=== PATIENT | female | born 1950 | race Caucasian/White ===

== ENCOUNTER → 2017-09-20 | Day surgery (SDC) | payer OTHER ==
[~2017-09-20] VITALS: Ht 167.6 cm; Wt 92.0 kg
[~2017-09-20] MED LIST: ACET-1138 PO; APOA20CA; ASPCH81X PO; ASPEC81 PO; CHOL1000 PO; CITA40TA4 PO; CLB200 PO; FLUT0.15 NAE; GLIP-199 PO; LISI-729 PO; LPT40 OR; MISCCAP80; MISCTAB30; MULT-190 PO; MULT-506 PO; OXYSR10 PO; PIOG1TAB23 PO; RXC5 PO; SITA100T3 PO
[2017-09-20 07:17] VITALS: BP 134/57; PULSE 71; TEMP 36.6; O2SAT 96; Ht 167.6 cm; Wt 92.0 kg
== END | disposition home or self-care (01) ==
LOC: C.CATH 06:32
PROVIDERS: ATTEND Internal Medicine Cardiovascular Disease
DX: R94.39 Abnormal result of other cardiovascular function study (principal)

== ENCOUNTER 2018-06-29 04:49 | Inpatient (IN) ==
--- NOTE | 2018-05-24 10:39 | PAT Medication Instructions ---
Medication Instructions Date of Service May 24, 2018 Home Medications Prevagen 1 tab PO DAILY atorvastatin 20 mg PO QAM citalopram 40 mg PO QAM glipizide 10 mg PO BID glucosamine-chondroitin [Osteo Bi-Flex] 1 tab PO DAILY lisinopril 5 mg PO QAM meloxicam 15 mg PO QAM nodufkhm-qtw-dole-FA-lutein [Centrum Silver Women] 1 tab PO DAILY pioglitazone 30 mg PO QAM sitagliptin [Januvia] 100 mg PO QAM ASK your surgeon for instructions meloxicam 15 mg PO QAM STOP taking 2 weeks before surgery glucosamine-chondroitin [Osteo Bi-Flex] 1 tab PO DAILY Prevagen 1 tab PO DAILY DO NOT take the morning of surgery glipizide 10 mg PO BID lisinopril 5 mg PO QAM jgnlbwsz-dsn-zfph-FA-lutein [Centrum Silver Women] 1 tab PO DAILY pioglitazone 30 mg PO QAM sitagliptin [Januvia] 100 mg PO QAM Take morning of surgery With a small sip of water, OTHERWISE NOTHING TO EAT OR DRINK AFTER MIDNIGHT: atorvastatin 20 mg PO QAM citalopram 40 mg PO QAM Take evening before surgery glipizide 10 mg PO BID Other Notes If you have any questions please call us at [phone] or [phone] or [phone] or [phone]
--- NOTE | 2018-05-24 13:47 | Anesthesiology Consultation ---
Date of Service May 24, 2018 Assessment & Plan (1) Encounter for pre-operative examination: Chart Review Chart Review: Acceptable Risk for Surgery and Patient seen in Pre Admission Testing Consults Requested none Teaching & Discussion Pre-Anesthesia Teaching/Discussion Notes: Instructed NPO after midnight before surgery, except medications with 15 cc of water. Medication instructions provided according to the PAT guidelines. History Surgery Operation Date: 06/29/18 14:00 Proposed Procedures p Right Total Knee Arthroplasty - Sid Holt MD Height/Weight Height: 5 ft 6 in Weight: 94.8 kg Allergies Allergy/AdvReac Type Severity Reaction Status Date / Time Cipro Allergy Unknown ITCHY,RASH Verified 02/26/16 05:53 ciprofloxacin Allergy Unknown ITCHY,RASH Verified 05/18/18 13:32 codeine Allergy Unknown HIVES Verified 05/18/18 13:32 nickel Allergy Unknown BLISTERS Verified 05/18/18 13:55 Penicillins Allergy Unknown STOMACH Verified 05/18/18 13:32 PAIN metformin AdvReac Unknown DIARRHEA Verified 05/18/18 13:32 Medications Home Medications Medication Instructions Recorded Confirmed Last Taken Prevagen 1 tab PO DAILY 05/18/18 05/18/18 Unknown atorvastatin 20 mg PO QAM 05/18/18 05/18/18 Unknown citalopram 40 mg PO QAM 05/18/18 05/18/18 Unknown glipizide 10 mg PO BID 05/18/18 05/18/18 Unknown glucosamine-chondroitin [Osteo 1 tab PO DAILY 05/18/18 05/18/18 Unknown Bi-Flex] lisinopril 5 mg PO QAM 05/18/18 05/18/18 Unknown meloxicam 15 mg PO QAM 05/18/18 05/18/18 Unknown leffiaxb-xpl-rzqq-FA-lutein 1 tab PO DAILY 05/18/18 05/18/18 Unknown [Centrum Silver Women] pioglitazone 30 mg PO QAM 05/18/18 05/18/18 Unknown sitagliptin [Januvia] 100 mg PO QAM 05/18/18 05/18/18 Unknown Past Medical History Medical History Diabetes Heel spur History of ankle fracture JAN 2018...RESOLVED Hypertension Nausea and vomiting after administration of anesthetic agent Osteoarthritis Spinal stenosis of cervical region Past Surgical History Surgical History History of arthroplasty of left knee History of cardiac catheterization /PAIN DOWN ARM, UNDER BREAST, JAW PAIN/NO FINDINGS ([facility]) History of colonoscopy History of laparoscopic cholecystectomy History of tonsillectomy Past Anesthesia History No Hx of Anesthesia Complications and No Family Hx of Anesthesia Complications History of PONV Yes Motion Sickness Screening History of Motion Sickness: No Social History Smoking Status: Former smoker tobacco type: cigarettes Smoking cigarettes per day: QUIT 1975 Do You Dip or Chew Tobacco: No Hx Alcohol Use: Yes Alcohol type: wine alcohol intake frequency: other Alcohol Intake Frequency Comment: ONCE A WEEK Hx Substance Use: No substance use type: does not use Exercise / Class Metabolic Activity II 4-5 Yardwork/Stairs/Walk up hill (Walks dogs a few times a week. Able to climb a FOS. Denies CP or SOB. ) Review of Systems Patient denies chest pain, shortness of breath, dyspnea on exertion, reflux, cough, wheezing, palpitations. +joint pain Physical Exam Vital Signs BP: 128/74 P: 75 R: 18 T: 97.8 SPO2: 96% on RA ENMT Thyromental Distance: > or= 3.5 Finger Breadths (4) Mallampati Class: I Neck normal visual inspection, trachea midline and + limited neck extension (due to spinal stenosis) Respiratory normal respiratory effort Auscultation: lungs clear to auscultation bilaterally Cardiovascular Rate/Rhythm: regular rate and regular rhythm Heart Sounds: no murmur Vessels: no carotid bruit Psychiatric Orientation: alert and oriented x 3 Testing Electrocardiogram Date: 05/24/18 Findings: + NSR @ (75) Non specific ST abnormality. No change compared to EKG of 09/08/17. Chest X-Ray Date: 05/24/18 Findings: + NAD Stress Test Date: 09/16/17 Type: exercise Resting EF: 55-59% Resting RWMA: + none Valvular Disease: no significant valvular disease The stress ECHO is borderline positive for inducible ischemia. Left ventricular wall motion is normal at rest. Left ventricular EF increases less than what is expected post exercise. No focal wall motion abnormalities are noted on the post exercise images, however not all myocardial segments were adequately visualized. A borderline hypertensive response to exercise was observed with peak blood pressure of 214/73. Exercise capacity is below average. The low workload achieved reduces the sensitivity of this test for the detection of CAD or ischemia. LV wall thickness is mildly increased (concentric). There is no significant valvular disease. Cardiac Catheterization Date: 09/23/17 Findings: + normal Left heart cath done due to positive stress test. Normal coronary arteries found. Recommendations: Medical therapy and/or Counseling. Laboratory Results 05/24/18 13:24 05/24/18 13:24 Blood Type O Positive 05/24/18 13:24 Antibody Screen NEGATIVE 05/24/18 13:24 PT 10.8 Seconds (9.0-12.0) 05/24/18 13:24 INR 1.0 (0.9-1.1) 05/24/18 13:24 APTT 27.9 Seconds (21.0-31.0) 05/24/18 13:24 Hemoglobin A1c 6.3 % (4.5-5.6) H 05/24/18 13:24 Urine Color Yellow 05/24/18 13:24 Urine Appearance Cloudy (Clear) H 05/24/18 13:24 Urine pH 6.0 (4.5-7.5) 05/24/18 13:24 Ur Specific [place] 1.022 (1.000-1.030) 05/24/18 13:24 Urine Protein Negative (Negative) 05/24/18 13:24 Urine Glucose (UA) Negative (Negative) 05/24/18 13:24 Urine Ketones Negative (Negative) 05/24/18 13:24 Urine Nitrite Negative (Negative) 05/24/18 13:24 Ur Leukocyte Esterase 2+ (Negative) H 05/24/18 13:24 Urine WBC (Auto) 10-30 /hpf (0-5) H 05/24/18 13:24 Urine RBC (Auto) 0-4 /hpf (0-4) 05/24/18 13:24 U Hyaline Cast (Auto) 1-5 /lpf (0-5) 05/24/18 13:24 U Epithel Cells (Auto) >30 /lpf (0-5) H 05/24/18 13:24 Urine Bacteria (Auto) 2+ (Negative) H 05/24/18 13:24 05/24/18 13:24 Urine Culture - Final Urine,Clean Catch Three types or organisms present, all moderate counts probable skin sj. No further identifications or sensitivities to follow.
--- NOTE | 2018-05-24 14:21 | XRay Report ---
XR chest Pre-admission PA/Lat CLINICAL HISTORY: pat preoperative attenuation COMPARISON STUDY: 09/23/2017 FINDINGS: The bones soft tissues and hemidiaphragms are normal. The cardiomediastinal silhouette is n ormal. The lungs are clear. The pulmonary vasculature is normal. IMPRESSION: Negative chest. The above report was generated using voice recognition software. It may contain grammatical, syntax or spelling errors. Electronically signed by: Venkat Rouse M.D. 05/24/2018 2:20 PM
[2018-05-24 15:40] LABS: Basophils # (auto) 0.02 K/uL (0-0.2); Basophils % (auto) 0.5 %; Eosinophils # (auto) 0.15 K/uL (0-0.5); Eosinophils % (auto) 3.7 %; Hematocrit (blood only) 37.3 % (37-47); Hemoglobin 12.8 g/dL (12.0-16.0); Immature Granulocytes # (auto) 0.03 K/uL (0.00-0.02); Immature Granulocytes % (auto) 0.7 %; Lymphocytes # (auto) 0.83 K/uL (1.2-3.4); Lymphocytes % (auto) 20.3 %; Mean Corpuscular Hgb Conc 34.3 g/dL (32-36); Mean Corpuscular Volume 90.8 fL (80-100); Monocytes # (auto) 0.57 K/uL (0.11-0.59); Neutrophils # (auto) 2.48 K/uL (1.4-6.5); Neutrophils % (auto) 60.8 %; Platelet Count 149 K/uL (130-400); RDW Coefficient of Variation 14.1 % (11.5-14.5); RDW Standard Deviation 47.2 fL (36.4-46.3); Red Blood Count 4.11 M/uL (4.2-5.4); White Blood Count 4.08 K/uL (4.8-10.8)
[2018-05-24 15:52] LABS: Appearance Urine Cloudy (Clear); Bacteria Urine Automated 2+ (Negative); Bilirubin Urine Negative (Negative); Color Urine Yellow; Epithelial Cell Urine Auto >30 /lpf (0-5); Glucose Urine UA Negative (Negative); Ketones Urine Negative (Negative); Leukocyte Esterase Urine 2+ (Negative); Nitrite Urine Negative (Negative); Protein Urine Negative (Negative); Specific Gravity Urine 1.022 (1.000-1.030); Urobilinogen Urine Negative (Negative)
[2018-05-24 15:54] LABS: Albumin Level 3.9 gm/dl (3.4-5.0); Calcium 8.7 mg/dl (8.5-10.1); Creatinine Clr Calc Pharmacy 82.1 ml/min; Est GFR (African American) 94.3; Est GFR (Non-African American) 81.3; Partial Thromboplastin Ratio 1.1; Partial Thromboplastin Time 27.9 Seconds (21.0-31.0); Potassium 3.8 mmol/L (3.5-5.1); Prothrombin Time 10.8 Seconds (9.0-12.0)
[2018-05-25 05:57] LABS: Estimated Average Glucose 134 mg/dl
--- NOTE | 2018-06-28 22:53 | History and Physical Report ---
DATE OF ADMISSION: 06/29/2018 CHIEF COMPLAINT: Chronic right knee pain. HISTORY OF PRESENT ILLNESS: This is a 67-year-old female patient of Dr. Holt'trudy complaining of chronic right knee pain and instability, longstanding, now progressively getting worse. The patient has been diagnosed with end-stage osteoarthritis per clinical and radiographic exams. She has failed conservative treatment including intra-articular injections, the use of Osteo Bi-Flex, anti-inflammatories, and cane. The patient has increased pain with weightbearing activities and her pain does interfere with her activities of daily living. PAST MEDICAL HISTORY: Hypercholesterolemia, sleep apnea, diabetes mellitus, osteoarthritis, spine problems, neck problems, upper back problems, obesity. SOCIAL HISTORY: She was a lifelong smoker, quit in 1975. She is an occasional drinker. PAST SURGICAL HISTORY: Tonsillectomy, cholecystectomy, left knee surgery, colonoscopy, and heart catheterization. FAMILY HISTORY: Noncontributory. REVIEW OF SYSTEMS: Chronic right knee pain and instability. Otherwise, denies any shortness of breath, chest pain, nausea, vomiting, or any other joint complaints. MEDICATIONS: 1. Lisinopril 5 mg daily. 2. Actos 30 mg daily. 3. Januvia 100 mg daily. 4. Citalopram 40 mg daily. 5. Glipizide 10 mg twice daily 6. Atorvastatin 20 mg daily. 7. Ocuvite Extra multiple vitamin and mineral daily. 8. Calciferol 1000 units of vitamin daily. 9. Osteo Bi-Flex daily. 10. Prevagen 20 mg daily. 11. Probiotic daily. 12. Fluticasone 50 mcg/actuation nasal spray 2 sprays each nostril daily. ALLERGIES: CODEINE WHICH CAUSES HIVES AND PENICILLIN WHICH CAUSES GI UPSET. PHYSICAL EXAMINATION: GENERAL: Well-developed, well-nourished 67-year-old female in no acute distress. She is alert, oriented x3 and pleasant. HEENT: Normocephalic, atraumatic. Extraocular motions are intact. Pupils are equal, reactive to light. HEART: Regular rate and rhythm, no murmurs appreciated. LUNGS: Clear. ABDOMEN: Soft and nontender. Bowel sounds present. EXTREMITIES: Right knee reveals 0-125 degrees limited range of motion with medial joint line tenderness. She has a varus deformity. She has crepitation with passive range of motion. She has about 4/5 strength with pain. NEUROLOGIC: Neurovascularly, she is intact in the right lower extremity. DIAGNOSES: Right knee end-stage osteoarthritis, hypercholesterolemia, sleep apnea, diabetes mellitus, spine problems, sciatica, obesity. PLAN: The patient was advised of her diagnosis. Indications, risks, benefits, postop course have all been reviewed. The patient wished to proceed with a right total knee arthroplasty. Necessary consent forms, preoperative testing, and clearances will be obtained.
[2018-06-29] MEDS: LR 500ML BOLUS, THEN 15ML/HR IV SCH ×2 (05:40→10:48)
[2018-06-29] MEDS ORDERED: VANCOMYCIN HCL 1,500 MG in SODIUM CHLORIDE 0.9% 500 ML IV SCH ×2 (06:00→18:00)
[2018-06-29] MEDS ORDERED: METOCLOPRAMIDE HCL 10 MG TABLET PO SCH (06:00)
[2018-06-29] MEDS ORDERED: ACETAMINOPHEN 500 MG TAB PO SCH (06:00)
[2018-06-29] MEDS ORDERED: GABAPENTIN 300 MG PO SCH (06:00)
[2018-06-29] MEDS ORDERED: ROPIVACAINE 0.5% HCL/PF 150 MG, BUPIVACAINE 0.5% MPF 30 ML, EPINEPHrine 30MG/30ML (OR U... INFIL SCH (06:00)
[2018-06-29] MEDS ORDERED: TRANEXAMIC ACID 1,000 MG **IV Pre-op IV SCH (06:00)
[2018-06-29] MEDS ORDERED: CeleBREX 200 MG CAP PO SCH (06:00)
[2018-06-29] MEDS ORDERED: FAMOTIDINE 20 MG TAB PO SCH (06:00)
[2018-06-29] MEDS ORDERED: BUPIVACAINE 0.5 % 5 MG/1 ML PF 10ML VIAL ONE (06:27)
[2018-06-29] MEDS ORDERED: DEXAMETHASONE SOD INJ 4 MG/ML VIAL ONE (06:29)
[2018-06-29] MEDS ORDERED: EPINEPHrine INJ 1 MG/ML AMP ONE (06:29)
[2018-06-29] MEDS ORDERED: ROPIVACAINE 0.5% 5 MG/ML 30 ML VIAL ONE (06:29)
[2018-06-29] MEDS ORDERED: TRANEXAMIC ACID 1,000 MG **IV Intra-op IV SCH (06:30)
[2018-06-29] MEDS ORDERED: POVIDONE-IODINE OP SOLN 30 ML BTL ONE (06:38)
[2018-06-29] MEDS ORDERED: fentaNYL citrate 100 MCG/2 ML VIAL ONE ×2 (06:38)
[2018-06-29] MEDS ORDERED: BACITRACIN INJ 50,000 UNIT VIAL ONE (06:38)
[2018-06-29] MEDS ORDERED: ORTHO JOINT ANESTHETIC ONE (06:38)
[2018-06-29] MEDS ORDERED: MIDAZOLAM HCL 1 MG/ML 2ML VIAL ONE (06:38)
[2018-06-29] MEDS ORDERED: fentaNYL citrate 100 MCG/2 ML VIAL IV PRN (07:01)
[2018-06-29] MEDS ORDERED: ONDANSETRON INJ 2 MG/ML 2 ML VIAL IV PRN ×2 (07:01→10:15)
[2018-06-29] MEDS ORDERED: ePHEDrine sulfate 50 MG/ML AMP IV PRN (07:01)
[2018-06-29] MEDS ORDERED: ATROPINE SULFATE 0.1 MG/ML 10ML SYR IV PRN (07:01)
--- NOTE | 2018-06-29 07:10 | History & Physical Bridge Note ---
Date of Service June 29, 2018 History & Physical Bridge Note I have examined the patient, reviewed the History & Physical and in the interval since the performance of the History & Physical I have noted the following changes of clinical significance: no changes noted
[2018-06-29] MEDS ORDERED: ONDANSETRON INJ 2 MG/ML 2 ML VIAL ONE (08:10)
[2018-06-29] MEDS ORDERED: PROPOFOL IV EMULSION 10 MG/ML 20 ML VIAL IV ONE ×2 (08:10)
[2018-06-29] MEDS ORDERED: LIDOCAINE HCL 2% 2 ML VIAL/AMP(20MG/ML) INFIL ONE (08:10)
[2018-06-29] MEDS ORDERED: PHENYLEPHRINE 100MCG/ML 5ML SYR ONE (08:42)
--- NOTE | 2018-06-29 08:50 | Post Operative Brief Note ---
Immediate Post Op Note v1 Date of Surgery June 29, 2018 Pre & Post Diagnosis Operation Date: 06/29/18 07:00 Pre-Op Diagnosis: Right Knee Degenerative Joint Disease Post-Op Diagnosis: Right Knee Degenerative Joint Disease Procedure Operation Date: 06/29/18 07:00 Actual Procedures p Right Total Knee Arthroplasty(Right) - Sid Holt MD Surgeon Sid Holt MD Defense Attorney Jarrod CONNELL Estimated Blood Loss 5 Findings Consistent with Post-Op Diagnosis Specimens Bone cuts Drains Hemovac Drain Anesthesia Type Spinal MAC Complications none Disposition Accompanied Patient To Recovery: No Disposition: Recovery Room Overlapping Procedure I was present for: the critical portions of procedure.
--- NOTE | 2018-06-29 09:00 | Operative Report ---
Post Operative Report Pre & Post Diagnosis Operation Date: 06/29/18 07:00 Pre-Op Diagnosis: Right Knee Degenerative Joint Disease Post-Op Diagnosis: Right Knee Degenerative Joint Disease Procedure Operation Date: 06/29/18 07:00 Actual Procedures p Right Total Knee Arthroplasty(Right) - Sid Holt MD Surgeon Sid Holt MD Md Senior Research Scientist Jarrod CONNELL Estimated Blood Loss 5 Findings Consistent with Post-Op Diagnosis Specimens Bone cuts Anesthesia Type Spinal MAC Complications none Disposition Accompanied Patient To Recovery: No Disposition: Recovery Room Indications 67-year-old female with bilateral knee degenerative arthritis history of left knee replacement. She has moderate to severe osteoarthritis in her right knee not quite tjsh-hq-ezzl but she had such good relief with her opposite knee and she has chronic pain swelling in her right knee that she want to proceed with knee replacement surgery. Description of Procedure The patient was taken to the operating room and anesthetized under spinal MAC regional block. Patient was placed supine on the the operating table. A pneumatic tourniquet was placed about the right upper thigh. The knee exam demonstrated good range of motion varus knee some LCL laxity with tight MCL. The involved leg was elevated exsanguinated with Esmarch bandage and the pneumatic tourniquet was raised to 325 millimeters mercury. A longitudinal incision was made across the anterior knee. Skin flaps were elevated. An incision was made into the medial retinaculum and extended up into the mid third of the quadriceps tendon and extended down to the tibial tubercle. Intra- articular findings demonstrated grade 3 close to grade 4 wear with significant thinning in the medial compartment both femoral condyle and tibia as well as patellofemoral joint. The knee was exposed by excising cruciate ligaments and menisci. The infrapatellar fat pad was resected. The fat pad over the anterior femur at the upper aspect of the articular surface was resected for placement of the component in that area. A subperiosteal peel lateral release was performed around the patella. Piecrust of MCL was required to balance flexion extension gaps. The [employer] journey 2.0 posterior stabilized total knee arthroplasty system was utilized for the procedure. The custom femoral cutting guide was pinned in position. The distal femoral cut was made. The size 4, 5 in 1 cutting block was placed. The anterior posterior and chamfer cuts were made. The knee was extended and a free hand cut technique was performed to the patella. The patella with was measured and the width was reproduced using a 32 patella component. 3 drill holes are made for the patella component pegs. The tibia was then subluxed. The custom tibial cutting block was pinned in position and the proximal tibial cut was made with the oscillating saw. The size 3 tibial trial was externally rotated in line with the tibial tubercle and pinned in position. The punch for the stem was used. The femoral trial was inserted and centered the notch cutting devices were used and the collet was placed. Tibial trials were used for the insert. The size 12 trial gave balanced ligaments through full range of motion. Patella tracking was assessed with range of motion. The patella tracked centrally. The trials were removed. The Orthomix anesthetic cocktail was injected per protocol. The cut bone surfaces and soft tissue were copiously irrigated with antibiotic solution with bacitracin. The final components were cemented with Simplex cement. The final components were 4 posterior stabilized right Tava[employer] journey 2.0 femur, 3 tibial baseplate, 12 posterior stabilized polyethylene insert, 32 symmetrical patella. While the cement cured the Betadine soak was used per protocol. When the cement cured the knee was copiously irrigated with pulsatile lavage antibiotic solution with bacitracin. 2 drains were brought out laterally connected to Hemovac. The quadriceps tendon and medial retinaculum were closed with interrupted [id number] #1 Vicryl sutures. The knee was taken through full range of motion and repair was secure. The subcutaneous tissues were closed with 2-0 Vicryl sutures. The skin was closed with collin. A sterile Silverlon dressing was applied. The tourniquet was let down and the patient had good capillary refill to the extremity. The patient tolerated the procedure well. My physician physician assistant Jarrod CONNELL assisted in the procedure including prepping draping leg positioning soft tissue retraction instrument management and assisted in the closure ,dressings application and will participate in postoperative care the patient. I attest to the content of the Intraoperative Record and any orders documented therein. Any exceptions are noted below.
--- NOTE | 2018-06-29 09:34 | XRay Report ---
RIGHT KNEE 2 VIEWS History: Right total knee arthroplasty. Degenerative arthritis. Postop. FINDINGS: The patient is status post a right total knee arthroplasty. The hardware is intact. No frac ture or dislocation. Skin collin and surgical drains are in place. IMPRESSION: Right total knee arthroplasty. No evidence for hardware complication. Electronically signed by: Geovanny Dugan M.D. 06/29/2018 9:33 AM
--- NOTE | 2018-06-29 09:54 | Anesthesiology Progress Note ---
Date of Service June 29, 2018 Anesthesia Post Procedure Vital Signs Vital Signs: Temp Pulse Pulse Resp BP Pulse Ox 06/29/18 09:40 36.5 C 76 18 111/49 L 95 06/29/18 09:30 78 18 111/50 L 94 06/29/18 09:20 79 16 102/47 L 96 06/29/18 09:10 36.4 C L 83 17 108/55 L 96 06/29/18 05:53 36.7 C 71 20 147/72 H 97 Pain Intensity Right Knee: Pain Intensity: 0 Notes Mental Status: alert / awake / arousable Patient Amnestic to Procedure: Yes Nausea / Vomiting: adequately controlled Pain: adequately controlled Airway Patency, RR, SpO2: stable & adequate BP & HR: stable & adequate Hydration State: stable & adequate Neuraxial Anesthesia: was administered and sensory block is resolving Anesthetic Complications: no major complications apparent
[2018-06-29] MEDS ORDERED: MoRPHine SULFATE 2 MG/ML CARP IV PRN (10:15)
[2018-06-29] MEDS ORDERED: ALUMINUM/MAGNESIUM SUSP 30 ML UDC PO PRN (10:15)
[2018-06-29] MEDS ORDERED: VANCOMYCIN CONSULT ACTIVE PRN (10:15)
[2018-06-29] MEDS ORDERED: MAGNESIUM HYDROXIDE SUSP 30 ML UDC PO PRN (10:15)
[2018-06-29] MEDS ORDERED: PHARMACY GLYCEMIC MGMT CONSULT PRN (10:19)
[2018-06-29] MEDS ORDERED: INSULIN GLARGINE SOLOSTAR 100 UNITS/ML 3 ML PEN SC STA (10:43)
[2018-06-29] MEDS: SODIUM CHLORIDE 0.9% 1000ML 1,000 ML IV SCH (12:42)
--- NOTE | 2018-06-29 12:48 | Pharmacy Report ---
Glycemic Control Consultation - Date of Service June 29, 2018 - Scope Scope: Glycemic Pharmacist consulted by Jarrod Palacio on 06/29/18 for glycemic control and to write orders per [facility] inpatient glycemic control protocol - Objective Weight: 93.582 kg Accuchecks BSG (last 24hrs): 06/29/18 06/29/18 06/29/18 05:14 09:14 10:33 POC Glucose 163 H 166 H 196 H 06/29/18 12:06 POC Glucose 312 H HbA1c: Hemoglobin A1c 6.3 % (4.5-5.6) H 05/24/18 13:24 - Recent Pertinent Medications Outpatient Anti-diabetic Regimen: * Actos, Januvia, Glipizide * A1c = 6.3 % 05/24/18 - Assessment & Plan Assessment & Plan: ASSESSMENT: * Ms. Ribera is a 67 yo F unbeknownst to the pharmacy glycemic service. PMHx: DM- II, Hypercholesterolemia, OA, obesity. Her outpt glycemic management is adequate based on her A1C of 6.3%, obtained 05/24/18. She is POD 0 for a R TKA. She did receive DXM 4mg IV x1 perioperatively. * She is maintained only on orals as an outpt, will utilize basal/bolus while here PLAN FOR INPATIENT GLYCEMIC CONTROL: * Holding outpatient oral diabetes medications * Basal insulin * Lantus 20 units given this afternoon, immediately upon arrival to the floor. Then lantus scale SQ BID set to start tonight * BSGs <140mg/dL give 10 units * BSGs 140-180mg/dL give 15 units * BSGs >180mg/dL give 20 units * Bolus insulin * NovoLog per scale ACHS or Q6hrs while NPO * Goal Range: Low 110 mg/dL - High 140 mg/dL * Correction Factor: 15 mg/dL/unit * Nutritional / Prandial insulin per carb ratio of 1 unit per 6 grams CHO consumed * adding 00,04 checks to help ensure euglycemia in the post-operative setting * Please note that the plan above was derived based on current level of insulin resistance and hospital stress. These recommendations are appropriate for inpatient admission only. Plan of care upon discharge will need to be reassessed to avoid potential outpatient hypo/hyperglycemia. Thank you.
[2018-06-29] MEDS: INSULIN ASPART 100 UNITS/ML 3 ML PEN SC SCH ×3 (13:15→21:30)
--- NOTE | 2018-06-29 13:15 | Internal Medicine Consult Note ---
Date of Consultation June 29, 2018 Assessment & Plan (1) Osteoarthritis: S/P right TKA. Doing well postoperatively. (2) HTN (hypertension): Hemodynamically stable postop. Continue lisinopril with hold parameters. (3) Diabetes mellitus, type II: Well controlled on oral agents. Hgb A1C 6.3. Pharmacy consulted for glycemic management during hospital stay. (4) Dyslipidemia: Continue atorvastatin. (5) Depression: Continue citalopram. (6) Glaucoma: Continue bimatoprost drops. (7) DVT prophylaxis: Per Ortho protocol. (8) Encounter for consultation: Thank you for this consultation. We will follow the patient with you during their hospital stay. My cell # is [phone]. Dr. Dukes will be assuming medical management 06/30. You can reach a member of the [facility] Medicine Team 11/01 via pager @ [phone]. History of Present Illness Reason for Consultation: medical management Requesting Physician: Dr. Holt Attending Physician: Sid Holt MD History of Present Illness 67 YO female followed by Deon Sharma PA-C in [place]. History of hypertension, DM type 2, and other problems noted below. Right TKA performed today by Dr. Holt under spinal / MAC anesthesia. Doing well postoperatively. No chest pain, cough, SOB, nausea, vomiting. Pain well-controlled. Allergies Allergy/AdvReac Type Severity Reaction Status Date / Time Cipro Allergy Unknown ITCHY,RASH Verified 02/26/16 05:53 ciprofloxacin Allergy Unknown ITCHY,RASH Verified 06/29/18 05:21 codeine Allergy Unknown HIVES Verified 06/29/18 05:21 nickel Allergy Unknown BLISTERS Verified 06/29/18 05:21 metformin AdvReac Unknown DIARRHEA Verified 06/29/18 05:21 Penicillins AdvReac Unknown STOMACH Verified 06/29/18 10:21 PAIN Home Medications Home Medications Medication Instructions Recorded Confirmed Type Prevagen 1 tab PO DAILY 05/18/18 06/29/18 History atorvastatin 20 mg PO QAM 05/18/18 06/29/18 History citalopram 40 mg PO QAM 05/18/18 06/29/18 History glipizide 10 mg PO BID 05/18/18 06/29/18 History glucosamine-chondroitin [Osteo 1 tab PO DAILY 05/18/18 06/29/18 History Bi-Flex] lisinopril 5 mg PO QAM 05/18/18 06/29/18 History meloxicam 15 mg PO QAM 05/18/18 06/29/18 History dahelxek-xbv-vutq-FA-lutein 1 tab PO DAILY 05/18/18 06/29/18 History [Centrum Silver Women] pioglitazone 30 mg PO QAM 05/18/18 06/29/18 History sitagliptin [Januvia] 100 mg PO QAM 05/18/18 06/29/18 History bimatoprost 1 drp OPB PM 06/29/18 06/29/18 History Patient History Medical History Hypertension (Chronic) Glaucoma (Chronic) Dyslipidemia (Chronic) Depression (Chronic) Diabetes mellitus, type II (Chronic) Osteoarthritis (Chronic) Heel spur (Chronic) History of ankle fracture (Chronic) JAN 2018...RESOLVED Osteoarthritis (Chronic) Spinal stenosis of cervical region (Chronic) Surgical History History of arthroplasty of left knee (Chronic) History of cardiac catheterization (Chronic) /PAIN DOWN ARM, UNDER BREAST, JAW PAIN/NO FINDINGS ([employer]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) History of colonoscopy (Chronic) History of laparoscopic cholecystectomy (Chronic) History of tonsillectomy (Chronic) Nausea and vomiting after administration of anesthetic agent (Resolved) Family History Aunt Colon cancer Uncle Colon cancer Grandfather (Maternal) Colon cancer Social History marital status: Current Living Situation: Spouse Other Information That Helps Us Care for You: No Feels Safe at Home: Yes Smoking Status: Former smoker Tobacco Type: cigarettes Cigarettes per Day: QUIT 1975 Do You Dip or Chew Tobacco: No Hx Alcohol Use: Yes Alcohol type: wine Alcohol Intake Frequency: other Hx Substance Use: No Beliefs That Will Affect Care: None Communication Ability: Effective Review of Systems Constitutional: no fever and no weight loss Respiratory: + cough recent cough, essentially resolved Cardiovascular: no chest pain Gastrointestinal: no nausea, no vomiting, no diarrhea/loose stools and no blood in stools Genitourinary (Female): no dysuria and no hematuria Musculoskeletal: + joint pain blood sugars well-controlled Physical Exam 2 Vital Signs (Past 24 Hours): Last Vital Signs Temp 36.7 C 06/29/18 13:04 Pulse 66 06/29/18 13:04 Resp 19 06/29/18 13:04 BP 103/66 06/29/18 13:04 Pulse Ox 99 06/29/18 13:04 Constitutional: WD/WN, vitals as above no acute distress Eyes: PERRL, conjunctivae normal, anicteric sclerae ENMT: external ear and nose normal, oropharynx normal Neck: trachea midline, no thyromegaly Respiratory: normal respiratory effort, lungs clear to auscultation Cardiovascular: Rate/Rhythm: regular rate Heart Sounds: + murmur (I/ sys murmur at base); no gallop and no cardiac rub Vessels: no JVD Gastrointestinal (Abdomen): normal bowel sounds, soft, nontender, no hepatosplenomegaly Musculoskeletal: Head/Neck/Chest: neck supple Extremities: no cyanosis and no clubbing bilateral SCD's TEDS LLE elastic wrap RLE Skin: no rashes, warm and dry Neurologic: PERRL, EOMI no facial palsy no dysarthria or aphasia Psychiatric: Orientation: alert and oriented x 3 Affect: euthymic affect Lymphatic: no cervical lymphadenopathy Results & Data Laboratory Results 05/24/18 05/24/18 05/24/18 13:24 13:24 13:24 WBC 4.08 L RBC 4.11 L Hgb 12.8 Hct 37.3 MCV 90.8 MCH 31.1 MCHC 34.3 RDW Std Deviation 47.2 H RDW Coeff of Brian 14.1 Plt Count 149 MPV 11.0 H Immature Gran % (Auto) 0.7 Neut % (Auto) 60.8 Lymph % (Auto) 20.3 [place] % (Auto) 14.0 Eos % (Auto) 3.7 Baso % (Auto) 0.5 Immature Gran # (Auto) 0.03 H Neut # (Auto) 2.48 Lymph # (Auto) 0.83 L [place] # (Auto) 0.57 Eos # (Auto) 0.15 Baso # (Auto) 0.02 PT 10.8 INR 1.0 APTT 27.9 PTT Ratio 1.1 Sodium 138 Potassium 3.8 Chloride 107 Carbon Dioxide 28 Anion Gap 3.0 BUN 17 Creatinine 0.75 Est Cr Clr Drug Dosing 82.1 Est GFR ( Amer) 94.3 Est GFR (Non-Af Amer) 81.3 BUN/Creatinine Ratio 22.0 H Glucose 93 POC Glucose Estimat Average Glucose Hemoglobin A1c Calcium 8.7 Albumin 3.9 Urine Color Urine Appearance Urine pH Ur Specific [place] Urine Protein Urine Glucose (UA) Urine Ketones Urine Blood Urine Nitrite Urine Bilirubin Urine Urobilinogen Ur Leukocyte Esterase Urine WBC (Auto) Urine RBC (Auto) U Hyaline Cast (Auto) U Epithel Cells (Auto) Urine Bacteria (Auto) Blood Type Antibody Screen 05/24/18 05/24/18 05/24/18 13:24 13:24 13:24 WBC RBC Hgb Hct MCV MCH MCHC RDW Std Deviation RDW Coeff of Brian Plt Count MPV Immature Gran % (Auto) Neut % (Auto) Lymph % (Auto) [place] % (Auto) Eos % (Auto) Baso % (Auto) Immature Gran # (Auto) Neut # (Auto) Lymph # (Auto) [place] # (Auto) Eos # (Auto) Baso # (Auto) PT INR APTT PTT Ratio Sodium Potassium Chloride Carbon Dioxide Anion Gap BUN Creatinine Est Cr Clr Drug Dosing Est GFR ( Amer) Est GFR (Non-Af Amer) BUN/Creatinine Ratio Glucose POC Glucose Estimat Average Glucose 134 Hemoglobin A1c 6.3 H Calcium Albumin Urine Color Yellow Urine Appearance Cloudy H Urine pH 6.0 Ur Specific [place] 1.022 Urine Protein Negative Urine Glucose (UA) Negative Urine Ketones Negative Urine Blood Negative Urine Nitrite Negative Urine Bilirubin Negative Urine Urobilinogen Negative Ur Leukocyte Esterase 2+ H Urine WBC (Auto) 10-30 H Urine RBC (Auto) 0-4 U Hyaline Cast (Auto) 1-5 U Epithel Cells (Auto) >30 H Urine Bacteria (Auto) 2+ H Blood Type O Positive Antibody Screen NEGATIVE 06/29/18 06/29/18 06/29/18 05:14 09:14 10:33 WBC RBC Hgb Hct MCV MCH MCHC RDW Std Deviation RDW Coeff of Brian Plt Count MPV Immature Gran % (Auto) Neut % (Auto) Lymph % (Auto) [place] % (Auto) Eos % (Auto) Baso % (Auto) Immature Gran # (Auto) Neut # (Auto) Lymph # (Auto) [place] # (Auto) Eos # (Auto) Baso # (Auto) PT INR APTT PTT Ratio Sodium Potassium Chloride Carbon Dioxide Anion Gap BUN Creatinine Est Cr Clr Drug Dosing Est GFR ( Amer) Est GFR (Non-Af Amer) BUN/Creatinine Ratio Glucose POC Glucose 163 H 166 H 196 H Estimat Average Glucose Hemoglobin A1c Calcium Albumin Urine Color Urine Appearance Urine pH Ur Specific [place] Urine Protein Urine Glucose (UA) Urine Ketones Urine Blood Urine Nitrite Urine Bilirubin Urine Urobilinogen Ur Leukocyte Esterase Urine WBC (Auto) Urine RBC (Auto) U Hyaline Cast (Auto) U Epithel Cells (Auto) Urine Bacteria (Auto) Blood Type Antibody Screen 06/29/18 12:06 WBC RBC Hgb Hct MCV MCH MCHC RDW Std Deviation RDW Coeff of Brian Plt Count MPV Immature Gran % (Auto) Neut % (Auto) Lymph % (Auto) [place] % (Auto) Eos % (Auto) Baso % (Auto) Immature Gran # (Auto) Neut # (Auto) Lymph # (Auto) [place] # (Auto) Eos # (Auto) Baso # (Auto) PT INR APTT PTT Ratio Sodium Potassium Chloride Carbon Dioxide Anion Gap BUN Creatinine Est Cr Clr Drug Dosing Est GFR ( Amer) Est GFR (Non-Af Amer) BUN/Creatinine Ratio Glucose POC Glucose 312 H Estimat Average Glucose Hemoglobin A1c Calcium Albumin Urine Color Urine Appearance Urine pH Ur Specific [place] Urine Protein Urine Glucose (UA) Urine Ketones Urine Blood Urine Nitrite Urine Bilirubin Urine Urobilinogen Ur Leukocyte Esterase Urine WBC (Auto) Urine RBC (Auto) U Hyaline Cast (Auto) U Epithel Cells (Auto) Urine Bacteria (Auto) Blood Type Antibody Screen Microbiology 05/24/18 13:24 Urine,Clean Catch Urine Culture - Final Three types or organisms present, all moderate counts probable skin sj. No further identifications or sensitivities to follow. Diagnostic Findings CXR 05/24/18- no significant abnormalities. ECG Additional Comments: EKG performed 05/24/18 reviewed and demonstrated NSR at 75 / min, nonspecific ST and T-wave abnormalities.
[2018-06-29] MEDS: ACETAMINOPHEN 500 MG TAB PO SCH ×2 (13:18→21:27)
[2018-06-29] MEDS: DOCUSATE SODIUM 100 MG CAP PO SCH (20:26)
[2018-06-29] MEDS: SENNA 8.6 MG TAB PO SCH (20:27)
[2018-06-29] MEDS: ASPIRIN 81 MG ECTAB PO SCH (20:27)
[2018-06-29] MEDS: BIMATOPROST 0.01% OP SOLN 2.5 ML BTL OPB SCH (20:27)
[2018-06-29] MEDS ORDERED: glipiZIDE 5 MG TAB PO SCH (21:00)
[2018-06-29] MEDS: INSULIN GLARGINE SOLOSTAR 100 UNITS/ML 3 ML PEN SC SCH (21:28)
[2018-06-30] MEDS: SODIUM CHLORIDE 0.9% 1000ML 1,000 ML IV SCH (00:31)
[2018-06-30] MEDS: INSULIN ASPART 100 UNITS/ML 3 ML PEN SC SCH ×6 (01:24→21:13)
[2018-06-30] MEDS: ACETAMINOPHEN 500 MG TAB PO SCH ×3 (05:37→21:10)
[2018-06-30 07:04] LABS: Hematocrit (blood only) 28.8 % (37-47); Mean Corpuscular Hgb Conc 34.7 g/dL (32-36); Mean Corpuscular Volume 89.4 fL (80-100); Mean Platelet Volume 10.7 fL (7.4-10.4); Platelet Count 124 K/uL (130-400); RDW Coefficient of Variation 13.7 % (11.5-14.5); Red Blood Count 3.22 M/uL (4.2-5.4); White Blood Count 8.88 K/uL (4.8-10.8)
[2018-06-30 07:30] LABS: BUN Creatinine Ratio 21.2 (10-20); Calcium 8.2 mg/dl (8.5-10.1); Creatinine Clr Calc Pharmacy 97.1 ml/min; Est GFR (African American) 106.1; Est GFR (Non-African American) 91.5; Potassium 3.5 mmol/L (3.5-5.1)
[2018-06-30] MEDS ORDERED: PIOGLITAZONE HCL 15 MG TAB PO SCH (09:00)
[2018-06-30] MEDS ORDERED: SITAGLIPTIN PHOSPHATE 100 MG TAB PO SCH (09:00)
[2018-06-30] MEDS: CITALOPRAM 40 MG TAB PO SCH (09:12)
[2018-06-30] MEDS: ASPIRIN 81 MG ECTAB PO SCH ×2 (09:13→21:10)
[2018-06-30] MEDS: MULTIVITAMIN TAB PO SCH (09:13)
[2018-06-30] MEDS: ATORVASTATIN 20 MG TAB PO SCH (09:13)
[2018-06-30] MEDS: DOCUSATE SODIUM 100 MG CAP PO SCH ×2 (09:13→21:09)
[2018-06-30] MEDS: LISINOPRIL 5 MG TAB PO SCH (09:14)
[2018-06-30] MEDS: INSULIN GLARGINE SOLOSTAR 100 UNITS/ML 3 ML PEN SC SCH ×2 (09:15→21:12)
[2018-06-30] MEDS: OXYCODONE HCL IR 5 MG TAB (IMMEDIATE RELEASE) PO PRN ×4 (09:24→22:28)
--- NOTE | 2018-06-30 10:05 | Orthopedic Progress Note ---
Date of Service June 30, 2018 Assessment & Plan (1) Right knee DJD: POD #1, Right TKA PT/OT DVT proph- ASA D/C planning- Home w OPPT As per medicine. Subjective POd #1, Doing well, denies sob, cp, n/v, states pain is controlled well. Physical Exam 2 Vital Signs (Past 24 Hours): Last Vital Signs Temp 36.5 C 06/30/18 07:10 Pulse 70 06/30/18 07:10 Resp 16 06/30/18 07:10 BP 110/66 06/30/18 07:10 Pulse Ox 97 06/30/18 07:10 Physical Exam: Right knee dressings c/d/i, no drainage, toes and ankle mobile , no cald tenderness, A&Ox3.
--- NOTE | 2018-06-30 11:26 | Anesthesiology Progress Note ---
Date of Service June 30, 2018 Anesthesia Post Procedure Vital Signs Vital Signs: Temp Pulse Resp BP Pulse Ox 06/30/18 07:10 36.5 C 70 16 110/66 97 06/30/18 03:29 36.7 C 74 16 118/69 94 06/29/18 22:54 36.5 C 70 16 125/71 96 06/29/18 19:13 36.5 C 66 16 109/62 94 06/29/18 15:28 36.5 C 75 16 123/71 94 06/29/18 13:04 36.7 C 66 19 103/66 99 06/29/18 12:05 67 15 98/62 L 99 Pain Intensity Right Knee: Pain Intensity: 2 Notes Mental Status: alert / awake / arousable and participated in evaluation Patient Amnestic to Procedure: Yes Nausea / Vomiting: adequately controlled Pain: adequately controlled Airway Patency, RR, SpO2: stable & adequate Hydration State: stable & adequate Neuraxial Anesthesia: was administered and sensory block is resolving Anesthetic Complications: no major complications apparent and Pt Satisfied with anesthetic care
--- NOTE | 2018-06-30 14:10 | Pharmacy Report ---
Pharmacy Glycemic Short Note 2 - Date of Service June 30, 2018 - Glycemic Short BSG Results (Last 24 hours): 06/29/18 06/29/18 06/30/18 17:03 20:45 01:15 Glucose POC Glucose 217 H 275 H 133 H 06/30/18 06/30/18 06/30/18 03:32 06:42 08:10 Glucose 103 H POC Glucose 113 H 107 H 06/30/18 12:18 Glucose POC Glucose 150 H ASSESSMENT: * BSGs starting to normalize. She did have some sustained hyperglycemia yesterday, like steroid induced. Will continue with standing insulin orders for now, anticipate DXM will start to wear off tonight or early tomorrow. PLAN FOR INPATIENT GLYCEMIC CONTROL: * Hold outpatient oral diabetes medications * Basal insulin - Lantus scale SQ BID * BSGs <140mg/dL give 10 units * BSGs 140-180mg/dL give 15 units * BSGs > 180mg/dL give 20 units * Bolus insulin * NovoLog per scale ACHS or Q6hrs while NPO * Goal Range: Low 110 mg/dL - High 140 mg/dL * Correction Factor: 15 mg/dL/unit * Nutritional / Prandial insulin per carb ratio of 1 unit per 6 grams CHO consumed
[2018-06-30] MEDS: SENNA 8.6 MG TAB PO SCH (21:10)
[2018-06-30] MEDS: BIMATOPROST 0.01% OP SOLN 2.5 ML BTL OPB SCH (21:11)
[2018-07-01] MEDS: OXYCODONE HCL IR 5 MG TAB (IMMEDIATE RELEASE) PO PRN ×4 (04:59→15:05)
[2018-07-01] MEDS: ACETAMINOPHEN 500 MG TAB PO SCH ×2 (05:41→13:59)
[2018-07-01] MEDS: CITALOPRAM 40 MG TAB PO SCH (08:33)
[2018-07-01] MEDS: ASPIRIN 81 MG ECTAB PO SCH (08:34)
[2018-07-01] MEDS: ATORVASTATIN 20 MG TAB PO SCH (08:34)
[2018-07-01] MEDS: DOCUSATE SODIUM 100 MG CAP PO SCH (08:34)
[2018-07-01] MEDS: MULTIVITAMIN TAB PO SCH (08:34)
[2018-07-01] MEDS: LISINOPRIL 5 MG TAB PO SCH (08:35)
[2018-07-01] MEDS: INSULIN ASPART 100 UNITS/ML 3 ML PEN SC SCH ×2 (08:37→12:44)
[2018-07-01] MEDS: INSULIN GLARGINE SOLOSTAR 100 UNITS/ML 3 ML PEN SC SCH (08:39)
--- NOTE | 2018-07-01 08:47 | Orthopedic Progress Note ---
Date of Service July 01, 2018 Assessment & Plan (1) Right knee DJD: POD #2, Right TKA PT/ OT DVT proph- Asa D/c planning-Home today with OPPT As per medicine. Subjective POd #2, Doing well, denies sob, cp, n/v, states pain is controlled well. Sugars elevated this AM. Physical Exam 2 Vital Signs (Past 24 Hours): Last Vital Signs Temp 36.8 C 07/01/18 07:59 Pulse 70 07/01/18 07:59 Resp 20 07/01/18 07:59 BP 169/81 H 07/01/18 07:59 Pulse Ox 98 07/01/18 07:59 Physical Exam: Right knee silverlon c/d/i, no drainage, no erythema, toes and ankle mobile, no calf tenderness, A&Ox3.
--- NOTE | 2018-07-05 19:24 | Discharge Summary ---
DISCHARGE DIAGNOSIS: Degenerative joint disease, right knee. SECONDARY DIAGNOSES: Hypercholesterolemia; sleep apnea; diabetes mellitus; osteoarthritis; history of cervical, thoracic, and lumbar spine problems in the past; obesity. CONSULTS: Deon Lofton MD COMPLICATIONS: None. PROCEDURES: Right total knee arthroplasty performed by Dr. Holt on 06/29/2018. BRIEF HISTORY: As dictated in history and physical. HOSPITAL SUMMARY: The patient was admitted on the above-noted date and had the above-named surgery performed, which she tolerated well. Dr. Lofton was consulted for postoperative medical management and [facility]. On her first postoperative day, she was doing well and had no complaints. Denied shortness of breath, chest pain, nausea, or vomiting. Pain was controlled. Vital signs were stable. Dressings clean, dry, and intact. Toes were mobile. No calf tenderness and she was started on physical therapy protocol and continued on DVT prophylaxis and pain management. By her second postoperative day, she continued to progress well with her physical therapy and remained stable. Vital signs were stable. She was afebrile. Silverlon dressing was clean, dry and intact. There was no erythema. Toes were mobile. Denied calf tenderness and was remaining medically stable and it was felt that they could be discharged to home. For further review, please see chart. LABORATORY AND X-RAY DATA: As per chart. DISCHARGE INSTRUCTIONS: The patient was discharged home in satisfactory condition on 07/01/2018. DIET: Diabetic. ACTIVITY: Weightbearing as tolerated on the right lower extremity. Follow TK instruction sheets and special care instructions as noted. Follow up with Dr. Holt in 2 weeks. The patient to call for appointment if one has not been made for you. DISCHARGE MEDICATIONS: Acetaminophen 1000 mg p.o. q. 8 hours, aspirin 81 mg p.o. b.i.d., oxycodone 5 mg p.o. q. 4 hours p.r.n. Resume home meds as listed. Stop taking Meloxicam.
== END 2018-07-01 15:17 | disposition home or self-care (01) | DRG 470 ==
LOC: ASU 04:49 → 3E 09:18